=== PATIENT | male | born 1955 | race Hispanic/Latino ===

== ENCOUNTER 2023-04-29 22:16 | Emergency (ER) | payer OTHER ==
--- OUTSIDE RECORDS SUMMARY | 2023-04-29 22:19 | XMS REPORT | Continuity of Care Document ---
:1955 Author Organization [facility] t Address [address] [place] [address] [place] [id number] Care Team Providers Name Role Phone JACKELINE ZENG Primary Care Physician Unavailable Darrick Zeng Attending Clinician Unavailable Deon Cummings Attending Clinician DEON SOLITARIO Attending Clinician Unavailable FRANCOIS JOSEPH Attending Clinician Unavailable Francois Roy Attending Clinician Ginger Corbett MD Attending Clinician GINGER CORBETT Attending Clinician Unavailable Payers Payer Name Policy Type Policy Number Effective Date Expiration Date S ource Problems Condition Condition Condition Status Onset Resolution Last Treating Co mments Source Name Details Category Date Date Treatment Clinician Date [id number] BPH loc w Problem Com mon urin Spirit obs/LUTS - [facility] [id number] Elevated Problem Comm on PSA [facility] - [facility] [id number] Enlarged Problem Comm on prostate Spirit without - [facility] lower urinary [facility] tract Medical symptoms Center (luts) No known No known Disease Unive rs active active ity of problems problems [facility] Allergies, Adverse Reactions, Alerts Allergy Allergy Status Severity Reaction(s) Onset Inactive Treating Comm ents Source Name Type Date Date Clinician SHRIMP DRUG Active Anaphylaxis Unive rs INGREDI 01-06 ity of 00:00: [address] Shrimp Propensi Active Anaphylaxis 2022-0 Uni vers ty to 7-15 ity of adverse 00:00: [place] reaction 00 Medical s Branch NO KNOWN Drug Active Univers ALLERGIE Class ity of S [place] [facility] [place] Social History Social Habit Start Date Stop Date Quantity Comments Source History of Current Smoker Common Spi rit - Tobacco Use [facility] Sex Assigned At Common Sp viviana - [facility] History SDOH University o f Alcohol Std [place] [facility] History SDOH University o f Alcohol Binge [place] [facility] History SDOH University o f Alcohol Comment [place] [facility] Exposure to 2021-12-27 2022-01-06 Not sure University SARS-CoV-2 00:00:00 10:17:00 [facility] (event) Branch Tobacco use and 2021-10-14 2021-10-14 Smokeless tobacco Un iversity of exposure 00:00:00 00:00:00 non-user [facility] Alcohol intake 2021-10-14 2021-10-14 Lifetime University of 00:00:00 00:00:00 non-drinker [facility] (finding) Branch History SDOH 2021-10-14 2021-10-14 1 University o f Alcohol Frequency 00:00:00 00:00:00 [place] [facility] Smoking Status Start Date Stop Date Source Current Smoker 2022-05-25 00:00:00 Common Spiri t - [facility] Never smoked tobacco [facility] Medications Ordered Filled Start Stop Current Ordering Indication Dosage Frequency Signature Comments Components Source Medication Medication Date Date Medication? Clinician (SIG) Name Name Alfuzosin Alfuzosin 2022- No 1{table QD Alfuzosin HCl ER 10 HCl ER 10 06-28 t_immed HCl ER 10 MG MG 00:00: 00:00 iately_ MG 00 :00 after_t he_same _meal} Flomax 0.4 Flomax 0.4 2021-06- No 1{capsu QD Flomax 0.4 MG MG 0-13 05-26 le} MG 00:00: 00:00 00 :00 Flomax 0.4 Flomax 0.4 2021-06- No 1{capsu QD Flomax 0.4 MG MG 0-19 05-17 le} MG 00:00: 00:00 00 :00 cefdinir 2021- No [id number] 600mg Take 2 U nivers 300 mg 7-15 07-26 capsules ity of capsule 00:00: 04:59 by mouth [place] 00 :00 in the Medical morning Branch for 10 days. meloxicam Yes 7.5mg Take 1 Univers 7.5 mg 4-22 tablet by ity of tablet 00:00: mouth [place] 00 daily. Medical Branch meloxicam Yes 7.5mg Take 1 Univers 7.5 mg 4-22 tablet by ity of tablet 00:00: mouth [place] 00 daily. Medical Branch meloxicam Yes 7.5mg Take 1 Univers 7.5 mg 4-22 tablet by ity of tablet 00:00: mouth [place] 00 daily. Medical Branch losartan-hy Yes 1{tbl} Take 1 Un ck drochloroth 3-20 tablet by ity of iazide 00:00: mouth [place] 100-25 mg 00 daily. Medical per tablet Branch losartan-hy Yes 1{tbl} Take 1 Un ck drochloroth 3-20 tablet by ity of iazide 00:00: mouth [place] 100-25 mg 00 daily. Medical per tablet Branch losartan-hy Yes 1{tbl} Take 1 Un ck drochloroth 3-20 tablet by ity of iazide 00:00: mouth [place] 100-25 mg 00 daily. Medical per tablet Branch metFORMIN Yes 850mg Take 850 Uni vers 850 mg 3-19 mg by ity of tablet 00:00: mouth 3 [place] 00 (three) Medical times Branch daily. metFORMIN Yes 850mg Take 850 Uni vers 850 mg 3-19 mg by ity of tablet 00:00: mouth 3 [place] 00 (three) Medical times Branch daily. metFORMIN 0 Yes 850mg Take 850 Uni vers 850 mg 3-19 mg by ity of tablet 00:00: mouth 3 [place] 00 (three) Medical times Branch daily. Losartan Losartan No 1{table QD Losartan Potassium-H Potassium-H t} Potassium- CTZ 100-25 CTZ 100-25 HCTZ MG MG 100-25 MG metFORMIN metFORMIN No TID metFORMIN HCl 850 MG HCl 850 MG HCl 850 MG Losartan Losartan No 1{table QD Losartan Potassium-H Potassium-H t} Potassium- CTZ 100-25 CTZ 100-25 HCTZ MG MG 100-25 MG metFORMIN metFORMIN No TID metFORMIN HCl 850 MG HCl 850 MG HCl 850 MG Losartan Losartan No 1{table QD Losartan Potassium-H Potassium-H t} Potassium- CTZ 100-25 CTZ 100-25 HCTZ MG MG 100-25 MG metFORMIN metFORMIN No TID metFORMIN HCl 850 MG HCl 850 MG HCl 850 MG Vital Signs Vital Name Observation Time Observation Value Comments Source height 2022-05-25 14:00:00 66 [in_i] [facility] weight 2022-05-25 14:00:00 181 [lb_av] [facility] bmi 2022-05-25 14:00:00 29.21 kg/m2 [facility] height 2022-04-12 15:30:00 66 [in_i] [facility] weight 2022-04-12 15:30:00 181 [lb_av] [facility] temperature 2022-04-12 15:30:00 98.3 [degF] [facility] bmi 2022-04-12 15:30:00 29.21 kg/m2 [facility] oximetry 2022-04-12 15:30:00 98 % [facility] respiratory rate 2022-04-12 15:30:00 16 /min Comm on Spirit [facility] blood pressure 2022-04-12 15:30:00 165 mm[Hg] Common [facility] - systolic [facility] blood pressure 2022-04-12 15:30:00 82 mm[Hg] Common Spirit - diastolic [facility] Systolic blood 2022-01-06 15:30:00 142 mm[Hg] Univer sity [facility] Diastolic blood 2022-01-06 15:30:00 75 mm[Hg] Unive rsity [facility] Heart rate 2022-01-06 15:30:00 113 /min [facility] Body temperature 2022-01-06 15:30:00 37.28 [facility]yn [facility] Respiratory rate 2022-01-06 15:30:00 18 /min [facility] Body height 2022-01-06 15:30:00 170.2 cm Universi ty of [facility] Body weight 2022-01-06 15:30:00 80.831 kg Universi ty [facility] BMI 2022-01-06 15:30:00 27.91 kg/m2 [facility] Oxygen saturation in 2022-01-06 15:30:00 99 /min [facility] Arterial blood by [facility] Pulse oximetry Branch Systolic blood 2021-10-14 13:41:00 183 mm[Hg] Univer sity of pressure [facility] Diastolic blood 2021-10-14 13:41:00 89 mm[Hg] Unive [facility] Heart rate 2021-10-14 13:41:00 78 /min Universi ty [facility] Body height 2021-10-14 13:35:00 [facility] weight 2021-10-14 13:35:00 86.183 kg Universi ty [facility] BMI 2021-10-14 13:35:00 30.67 kg/m2 [facility] Procedures Procedure Date / Time Performed Performing Clinician Sourc e POCT URINALYSIS 2022-01-06 15:55:00 Deon Solitario [place] o f [facility] Encounters Start End Encounter Admission Attending Care Care Encounter Source Date/Time Date/Time Type Type Clinicians Facility Department ID 2022-04-12 Outpatient Zeng, STLMLC STLMLC [id number] Common 13:52:02 EdnaCorbin [id number] Spir it - [facility] 2022-06-28 2022-06-28 (TEL) STLMLC STLMLC [id number] Co mmon 00:00:00 00:00:00 Spirit - [facility] 2022-05-25 2022-05-25 OFFICE STLMLC STLMLC [id number] Co mmon 00:00:00 00:00:00 VISIT EST Spir it PT LEVEL 3 - [facility] 2022-04-12 2022-04-12 OFFICE STLMLC STLMLC [id number] Co mmon 00:00:00 00:00:00 VISIT NEW Spir it PT LEVEL 3 - [facility] 2022-01-06 2022-01-06 [facility] [id number] Univers 12:00:00 12:20:00 Care Equallogic [id number] it y [facility] [id number] [place] as SHERRY?BLEA [id number] [facility] [address] MEDICAL OFFICE BUILDING 2022-01-06 2022-01-06 Outpatient R KASSI [facility] [id number] Univers 12:00:00 12:00:00 DEON [facility] 2021-10-14 2021-10-14 [facility] [id number] Univers 08:45:00 23:59:00 FRANCOIS [facility] 2021-10-14 2021-10-14 Office Francois Joseph [facility] [id number] [facility] 08:45:00 09:00:00 Visit Corbett Ginger [facility] [id number] ity of [facility] [id number] [place] SHERRY?BLEA [id number] Wi robin [facility] [address] [facility] OFFICE [facility] 2021-10-14 2021-10-14 [facility] [id number] Univers 08:45:00 08:45:00 [place] [facility] Results Test Description Test Time Test Comments Results Result Comments Source POCT URINALYSIS W SPECIFIC GRAVITY 2022-01-06 16:00:00 Test Item Value Reference Range Interpretation Comme nts POCT U SP GRAV (test code = 3255) 1.030 mg/dl 1.005-1.025 A POCT PH U (test code = 3254) 5 mg/dl 5-8 POCT U LEUK EST (test code = 3263) Positive Negative - Negative POCT U NIT (test code = 3262) Negative Negative - Negative POCT U PROT (test code = 3259) Trace Negative - Negative POCT U GLU (test code = 3256) Normal Negative - Negative POCT U KETONE (test code = 3258) Negative Negative - Negative POCT U UROBILI (test code = 3260) Normal 0.2-1 POCT U BILI (test code = 3261) Negative Negative - Negative POCT U BLD (test code = 3257) Positive Negative - Negative POCT U COLOR (test code = 3266) Kelly POCT U APPEAR (test code = 3267) Cloudy Lab Interpretation (test code = 19253-8) Abnormal [facility]
--- NOTE | 2023-04-30 00:21 | EDPHYS ---
Physician Documentation [facility] Name: Melvin Jose Age: 68 yrs Sex: Male : 1955 Arrival Date: 04/29/2023 Time: 22:16 Bed 12 Private MD: ED Physician Guicho Lake HPI: 04/29 22:45 This 68 yrs old Male presents to ER via Ambulatory with complaints of Head cp Injury Without LOC-Adult, Fall Injury, Laceration To Head. 22:45 The patient or guardian reports a laceration, clean, irregular. The complaints affect cp the above left eye. Context of injury: trip and fall tonight. patient admits to drinking alcohol and denies LOC. Historical: - Allergies: 22:33 No Known Allergies; hb - Home Meds: 22:33 losartan oral [Active]; hb - PMHx: 22:33 Hypertension; hb - PSHx: 22:33 None; hb - Immunization history:: Adult Immunizations up to date. - Social history:: Smoking status: Patient reports the use of cigarette tobacco products, smokes one-half pack cigarettes per day. ROS: 22:50 Constitutional: Negative for body aches, chills, fever, poor PO intake, cp 22:50 Eyes: Negative for injury, pain, redness, and discharge, cp 22:50 Neck: Negative for pain with movement, pain at rest, stiffness, 22:50 Cardiovascular: Negative for chest pain, palpitations, 22:50 Respiratory: Negative for cough, shortness of breath, wheezing, 22:50 Abdomen/GI: Negative for abdominal pain, vomiting, diarrhea, constipation, 22:50 Back: Negative for pain at rest, pain with movement, 22:50 Neuro: Negative for altered mental status, loss of consciousness, syncope, 22:50 All other systems are negative, Exam: 04/30 00:16 Constitutional: The patient appears in no acute distress, alert, awake, cp non-diaphoretic, non-toxic, well developed, well nourished, Head/face: Noted is a laceration(s), that is superficial, that is jagged, of the above left eye, swelling, that is mild, tenderness, that is mild, Eyes: Pupils: equal, round, and reactive to light and accomodation, Extraocular movements: intact throughout, Conjunctiva: normal, no exudate, no injection, Lids and lashes: appear normal, bilaterally, ENT: External ear(s): are unremarkable, Nose: is normal, Mouth: Lips: moist, Oral mucosa: moist, Posterior pharynx: is normal, airway is patent, no erythema, no exudate, Neck: C-spine: C-collar placed in ED, vertebral tenderness, is not appreciated, crepitus, is not appreciated, Chest/axilla: Inspection: normal, Palpation: is normal, no crepitus, no tenderness, Cardiovascular: Rate: Respiratory: the patient does not display signs of respiratory distress, Respirations: normal, no use of accessory muscles, no retractions, labored breathing, is not present, Breath sounds: are clear throughout, no decreased breath sounds, no stridor, no wheezing, Abdomen/GI: Inspection: abdomen appears normal, Palpation: abdomen is soft and non-tender, in all quadrants, Back: pain, is absent, ROM is normal, Musculoskeletal/extremity: Extremities: all appear grossly normal, with no appreciated pain with palpation, Neuro: Orientation: to person, place \T\ time. Mentation: is normal, Motor: moves all fours, strength is normal, Vital Signs: 04/29 22:31 BP 164 / 90; Pulse 88; Resp 16; Temp 98.2; Pulse Ox 100% on R/A; Weight 81.65 kg; hb Height 5 ft. 6 in. ; Pain 5/10; 04/30 00:15 BP 150 / 73; Pulse 81; Resp 17; Pulse Ox 99% ; jj7 04/29 22:31 Body Mass Index 29.05 (81.65 kg, 167.64 cm) hb 04/29 22:31 Pain Scale: Adult hb Damine Coma Score: 04/29 22:45 Eye Response: spontaneous(4). Motor Response: obeys commands(6). Verbal Response: cp oriented(5). Total: 15. MDM: 22:37 Patient medically screened. cp 04/30 00:20 Data reviewed: vital signs, nurses notes, radiologic studies, CT scan, and as a result, cp I will discharge patient. 00:20 Consideration of Admission/Observation Escalation of care including cp admission/observation considered. Special discussion: Based on the patient's history, exam and DX evaluation, there is no indication for emergent intervention or inpatient [place]. It is understood by the patient/guardian that if the SXs persist or worsen they need to return immediately for re-evaluation. 04/29 22:41 Order name: CT Head C Spine cp 04/29 22:41 Order name: C-Collar; Complete Time: 22:45 cp 04/30 00:16 Order name: Wound dressing cp Administered Medications: No medications were administered Disposition: 01:15 Co-signature as Attending Physician, Guicho Lake MD I agree with the assessment sp4 and plan of care. I reviewed the patient's care provided by the Advanced Practice Provider and agree with the diagnosis and treatment plan. Disposition Summary: 04/30/23 00:20 Discharge Ordered Notes: Location: Home cp Problem: new cp Symptoms: have improved cp Condition: Stable cp Diagnosis - Laceration without foreign body of unspecified part of head cp Followup: cp - With: Emergency Department - When: As needed - Reason: Worsening of condition Discharge Instructions: - Discharge Summary Sheet cp - Head Injury, Adult cp - Nonsutured Laceration Care cp Forms: - Medication Reconciliation Form cp - Thank You Letter cp - Antibiotic Education cp - Prescription Opioid Use cp - Patient Portal Instructions cp - Leadership Thank You Letter cp Signatures: Dispatcher [employer] EDMS Rubén Hardin PA PA cp Darline Whyte, FIORELLA RN Guicho Hernandez MD MD sp4
--- NOTE | 2023-04-30 00:21 | ER ---
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 hb Negative LOC. Bleeding controlled. Reports having "a few mixed drinks" tonight. Coronavirus screen: At this time, the client does not indicate any symptoms associated with coronavirus-19. Ebola Screen: No symptoms or risks identified at this time. Initial Sepsis Screen: Does the patient meet any 2 criteria? No. Patient's initial sepsis screen is negative. Does the patient have a suspected source of infection? No. Patient's initial sepsis screen is negative. Risk Assessment: Do you want to hurt yourself or someone else? Patient reports no desire to harm self or others. Onset of symptoms was April 29, 2023. 22:31 Method Of Arrival: Ambulatory hb 22:31 Acuity: RADHA 4 hb Historical: - Allergies: 22:33 No Known Allergies; hb - Home Meds: 22:33 losartan oral [Active]; hb - PMHx: 22:33 Hypertension; hb - PSHx: 22:33 None; hb - Immunization history:: Adult Immunizations up to date. - Social history:: Smoking status: Patient reports the use of cigarette tobacco products, smokes one-half pack cigarettes per day. Screenin/06 00:15 [facility] ED Fall Risk Assessment (Adult) History of falling in the last 3 months, jj7 including since admission Yes- single mechanical fall (1 pt) Confusion or Disorientation No (0 pts) Intoxicated or Sedated Yes (3 pts) Impaired Gait No (0 pts) Mobility Assist Device Used No (0 pt) Altered Elimination No (0 pt) Score/Fall Risk Level 3 or more points = High Risk Oriented to surroundings, Maintained a safe environment, Educated pt \\T\\ family on fall prevention, incl call for assistance when getting out of bed. Abuse screen: Denies threats or abuse. Nutritional screening: No deficits noted. Tuberculosis screening: No symptoms or risk factors identified. Assessment: 00:12 Reassessment: ASSUMED CARE OF PT. PT MOVED TO ROOM. C-COLLAR REMOVED. PT TOLERATED jj7 WELL. LAC NOTED ABOVE LEFT EYEBROW. DAVID COOL AT BEDSIDE. FAMILY AT BEDSIDE. NO NEEDS AT THIS TIME. 00:15 General: Appears in no apparent distress. uncomfortable, Behavior is calm, cooperative, jj7 appropriate for age. Pain: Denies pain. Derm: Wound noted forehead Wound is SMALL LAC/ABRASION ABOVE LEFT EYEBROW. Vital Signs: 04/29 22:31 BP 164 / 90; Pulse 88; Resp 16; Temp 98.2; Pulse Ox 100% on R/A; Weight 81.65 kg; hb Height 5 ft. 6 in. ; Pain 5/10; 04/30 00:15 BP 150 / 73; Pulse 81; Resp 17; Pulse Ox 99% ; jj7 04/29 22:31 Body Mass Index 29.05 (81.65 kg, 167.64 cm) hb 04/29 22:31 Pain Scale: Adult hb Damien Coma Score: 04/29 22:45 Eye Response: spontaneous(4). Motor Response: obeys commands(6). Verbal Response: cp oriented(5). Total: 15. ED Course: 22:19 Patient arrived in ED. jj6 22:26 David Hardin PA is PHCP. cp 22:26 Guicho Lake MD is Attending Physician. cp 22:33 Triage completed. hb 22:33 Arm band placed on. hb 23:09 CT Head C Spine In Process Unspecified. EDMS 11 00:15 Patient has correct armband on for positive identification. Bed in low position. Call jj7 light in reach. Adult w/ patient. Provided Education on: FALL SAFETY. 00:15 No provider procedures requiring assistance completed. Patient did not have IV access jj7 during this emergency room visit. 00:18 Jignesh Hoskins, RN is Primary Nurse. bp Administered Medications: No medications were administered Medication: 00:15 VIS not applicable for this client. jj7 Outcome: 00:20 Discharge ordered by . cp 00:28 Discharged to home ambulatory, with family, [email or web address] 00:28 Condition: good 00:28 Discharge instructions given to patient, family, Instructed on discharge instructions, safety practices, Demonstrated understanding of instructions, 00:32 Patient left the ED. jj7 Signatures: Dispatcher [employer] EDMS David Hardin PA PA cp Baxter, Heather RN RN Jignesh Walton RN RN Jade Stevens jj6 Cheo Webb RN RN jj7
[2023-04-30] MEDS ORDERED: DERMABOND SKIN ADHESIVE TOP ONE (00:28)
[2023-04-30 00:36] VITALS: TEMP 98.2
[2023-04-30 00:38] VITALS: BP 150/73; O2SAT 99
--- NOTE | 2023-04-30 11:35 | RAD REPORT ---
EXAM DESCRIPTION: CT Head and Cervical Spine Without Intravenous Contrast CLINICAL HISTORY: The patient is 68 years old and is Male; fall TECHNIQUE: Axial computed tomography images of the head/brain and cervical spine without intravenous contrast. Sagittal and coronal reformatted images were created and reviewed. This CT exam was pe rformed using one or more of the following dose reduction techniques: automated exposure control, a djustment of the mA and/or kV according to patient size, and/or use of iterative reconstruction techn ique. COMPARISON: No relevant prior studies available. FINDINGS: Brain: Unremarkable. No hemorrhage. No significant white matter disease. No edema. Ventricles: Unremarkable. No ventriculomegaly. Skull: No acute fracture. Sinuses: Unremarkable as visualized. No acute sinusitis. Mastoid air cells: Unremarkable as visualized. No mastoid effusion. Vertebrae: See below. Discs/spinal canal/neural foramina: Multilevel disc space narrowing with degenerative endplate ch anges most prominent at C5-6, C6-C7, and C7-T1. Severe left neural foraminal narrowing at C5-6. Moderate to severe right neural foraminal narrowing at C5-6. Moderate bilateral neural foraminal narrowing at C6-7. Moderate spinal canal narrowing C5-6 and C6-7. Soft tissues: Unremarkable. IMPRESSION: No acute intracranial abnormality. No acute findings in the cervical spine. Electronically signed by: Abdiel Marie MD 04/29/2023 11:29 PM BARREL WASHER Due to temporary technical issues with the PACS/Fluency reporting system, reports are being signed by the in house radiologist without review as a courtesy to ensure prompt reporting. The interpreting r adiologist is fully responsible for the content of the report.
== END 2023-04-30 00:32 | disposition home or self-care (01) ==
LOC: ER 22:16
DX: S01.81XA Laceration without foreign body of other part of head, initial encounter (principal); I10 Essential (primary) hypertension; F17.210 Nicotine dependence, cigarettes, uncomplicated
CPT/HCPCS: 70450; 72125; 99282